=== PATIENT | female | born 1960 | race American Indian/Alaskan Native ===

== ENCOUNTER 2017-06-19 20:15 | Emergency (ER) | payer MEDICARE, OTHER ==
[~2017-06-19] VITALS: Ht 154.9 cm; Wt 73.0 kg
[~2017-06-19 20:15] MED LIST: ACETAMINOPHEN325 M1 PO; CHLORPHENIRAMINE4 MG PO; COZAAR25 MG PO; CRESTOR20 MG PO; NORCO 5-325 TA1 EACH PO; PREDNISONE5 MG PO; PROMETHAZINE HC25 M1 PO; ROBITUSSIN100 MG/5 M PO; SIMVASTATIN10 MG PO; TAMIFLU75 MG PO; VITAMIN D35000 UNIT PO
== END 2017-06-19 21:41 | disposition home or self-care (01) ==
LOC: ED 20:15
DX: S90.31XA Contusion of right foot, initial encounter (principal); M06.9 Rheumatoid arthritis, unspecified; I10 Essential (primary) hypertension; Z98.51 Tubal ligation status; Z98.890 Other specified postprocedural states; Z88.6 Allergy status to analgesic agent; Z79.899 Other long term (current) drug therapy; W22.8XXA Striking against or struck by other objects, initial encounter
CPT/HCPCS: 73610; 73630; 99283

== ENCOUNTER 2018-11-02 20:10 | Emergency (ER) | payer MEDICARE, OTHER ==
[~2018-11-02] VITALS: Ht 160 cm; Wt 78.0 kg
[~2018-11-02 20:10] MED LIST changes: +ALENDRONATE SOD35 MG PO; +ATORVASTATIN CA10 MG PO; +AUGMENTIN 875-1 EACH PO; +NAPROXEN500 MG PO
[2018-11-03] MEDS ORDERED: TRAMADOL HCL50 MG PO (00:27)
== END 2018-11-03 00:38 | disposition home or self-care (01) ==
LOC: ED 20:10
DX: J40 Bronchitis, not specified as acute or chronic (principal); M06.9 Rheumatoid arthritis, unspecified; I10 Essential (primary) hypertension; Z88.6 Allergy status to analgesic agent; Z79.899 Other long term (current) drug therapy
CPT/HCPCS: 71045; 80053; 84484; 85025; 96361; 96374; 99284-25; J1885; J7030

== ENCOUNTER 2019-02-25 21:15 | Emergency (ER) | payer MEDICARE, OTHER ==
[~2019-02-25] VITALS: Ht 160 cm; Wt 78.9 kg
[~2019-02-25 21:15] MED LIST changes: +TRAMADOL HCL50 MG PO
[2019-02-25] MEDS ORDERED: COUGH SYRU100 MG/5 M PO (21:27)
[2019-02-26] MEDS ORDERED: GUAIFENESIN AC473 ML PO (00:11)
== END 2019-02-26 00:33 | disposition home or self-care (01) ==
LOC: ED 21:15
DX: J98.8 Other specified respiratory disorders (principal); B97.89 Other viral agents as the cause of diseases classified elsewhere; I10 Essential (primary) hypertension; Z88.6 Allergy status to analgesic agent; Z79.899 Other long term (current) drug therapy
CPT/HCPCS: 99283

== ENCOUNTER 2020-11-21 07:50 | Day surgery (SDC) | payer MEDICARE, OTHER ==
--- NOTE | 2020-11-15 13:21 | NUR ---
CALL INTO DR LEO REGARDING PT RECEIVING HER 2ND COVID INJECTION. LEFT MESSAGE DUE TO DR IS NOT IN AT THIS TIME. PT IS GOING TO CALL PRODUCTION SOLDERER WITH THE SPECIFIC DATE OF INJECTION. PT THINKS IT IS Nov.
[~2020-11-21] VITALS: Ht 160 cm; Wt 73.6 kg
[~2020-11-21 07:50] MED LIST changes: +CLARITIN10 MG PO; +COUGH SYRU100 MG/5 M PO; +DOXYCYCLINE MO100 MG PO; +GUAIFENESIN AC473 ML PO
--- NOTE | 2020-11-21 11:56 | NUR ---
11/21/20 1156 Juani Richter 1029 PT ARRIVED IN PACU AWAKE WITH NO C/O'S. BLOOD SUGAR 105. 1040 PORTABLE 3 VIEW XRAY OF R FOOT DONE. 1045 UP TO BSC. VOIDED 300ML. BACK IN BED. 1100 C/O PAIN ON THE OUTSIDE OF R ANKLE. TC TO . 1115 SPOKE WITH AND PAIN R/T TOURNEQUET. EXPLAINED THIS TO PT, WITH VERBAL UNDERSTANDING. 1135 DC INSTRUCTIONS GIVEN. LEFT VIA W/C.
--- NOTE | 2020-11-22 13:52 | OR ---
[facility] [address] [facility] [place] [address] Signed DATE OF OPERATION: 11/21/2020 SURGEON: Ruddy Eubanks DPM PREOPERATIVE DIAGNOSES: 1. Deformity of right first digit. 2. Flexion deformity of right foot muscle and tendon to first digit. POSTOPERATIVE DIAGNOSES: 1. Deformity of right first digit. 2. Flexion deformity of right foot muscle and tendon to first digit. PROCEDURES: 1. Right first MTPJ fusion with locking plate. 2. Flexor tenotomy of the right first digit. LABOR ARBITRATOR HEARING OFFICE: Saw Joaquin DPM NURSE BOILERMAKER PIPE FITTER: Saw Noguera. ANESTHESIA: Local with MAC consisting of 16 mL of 0.5% ropivacaine mixed with 2% lidocaine plain. HEMOSTASIS: Ankle tourniquet. ESTIMATED BLOOD LOSS: Less than 5 mL or minimal. MATERIALS USED: One ORTHOLOC MTPJ locking plate with 2.7 screws, 4-0 Vicryl, 5-0 nylon. PROCEDURE IN DETAIL: The patient was brought into the operating room and placed upon the operating table in the supine position. The right foot was prepped, local anesthesia was administered around the first right MTPJ and medial midfoot. The right foot was the scrubbed, prepped and draped in the usual sterile technique. An Esmarch bandage was then utilized to exsanguinate the patient's right foot and then left wrapped around the ankle to act as Electronically Signed By: RUDDY EUBANKS DPM 11/22/20 1352 PATIENT NAME: CLAYTON MORALES OPERATIVE REPORT DATE OF : 58 REPORT #: [id number] PHYSICIAN: RUDDY EUBANKS DPM PCP: ASA DEL CASTILLO REPORT IS CONFIDENTIAL AND NOT TO BE RELEASED WITHOUT AUTHORIZATION [facility] [address] [place], [place] [address] Signed tourniquet. Attention was then directed to the dorsal aspect of the patient's right first MTPJ where approximately a 6 cm linear incision was performed both parallel and medial to the area of the extensor hallucis longus. This followed scarring from a previous surgery over the first metatarsal head that was extended onto the first digit proximal phalanx. Incision was then deepened through the subcutaneous tissue with care being taken to identify and retract vital neurovascular structures. Bleeders were cauterized and ligated as necessary. Careful dissection continued down to the level of the first MTPJ. It should be noted in this region a couple of things: 1. Scar tissue formation along the medial aspect of the first metatarsal head was abundant likely from previous surgery. 2. Extensor tendon did not extend down onto the first digit. It seem to be adhered around the metatarsal head region. 3. Arthritic changes at the MTPJ was observed. Sagittal saw was then utilized to resect arthritic gross changes around the MTPJ. 4. K-wire was inserted into the first metatarsal head and driven upwards into the shaft to act as a guidewire. Using a cup and dome reamers the head of the reamers set the head of the first metatarsal was shape. The articulate cartilage was denuded to raw bone. The K-wire was then removed. Again utilizing a reamer set K-wire was driven through the base of the proximal phalanx up distal aspect of the digit to act as a guidewire. Reamer set was then utilized to shape the base of the proximal phalanx removing and denuding articular cartilage and dividing down to raw bone. The area was then flushed with copious amounts of sterile normal saline. Rongeur was utilized to remove the additional hypertrophic bone and then also bone rasp was utilized to smooth the area. First digit was placed into a more corrected rectus position. There was very little dorsiflexion noted here. There was a significant flexion contracture that was still present. Prior to the application of the plate, the toe was distracted. The flexor tendon going into the digit was identified. Tenotomy scissors were then utilized to perform a tenotomy of the flexor hallucis tendon and this released the flexion contracture. Next, the proximal phalanx was moved into good rectus position on the metatarsal head with very slight dorsiflexion. K-wire was driven across the MTPJ to act as temporary fixation. Next, a ORTHOLOC locking plate was then applied following standard AO fixation techniques. K-wires were removed for completion of the screws of the locking plate. Good positioning of the MTPJ was observed. Good approximation across the joint was also observed. The area was then flushed with copious amounts of sterile normal saline. The deep soft tissue and the joint capsule was then closed utilizing 4-0 Vicryl. Subcutaneous tissue was closed utilizing 4-0 Vicryl and the skin was reapproximated and coapted utilizing 5-0 nylon in the continuous interlocking suture technique. Postoperative injection consisting of approximately 5 mL of 0.5% ropivacaine and 1 mL of dexamethasone phosphate was injected about the surgical site. The area was then dressed with silver foam dressing, fluff guaze, rolled guaze and Coban. The ankle tourniquet was removed and prompt hyperemic response was noted to all digits of the patient's right foot. The patient was then escorted to the recovery area with vital Electronically Signed By: RUDDY EUBANKS DPM 11/22/20 1352 PATIENT NAME: CLAYTON MORALES OPERATIVE REPORT DATE OF : 58 REPORT #: [id number] PHYSICIAN: RUDDY EUBANKS DPM PCP: [facility] REPORT IS CONFIDENTIAL AND NOT TO BE RELEASED WITHOUT AUTHORIZATION [facility] [address] [place] [id number] Signed signs stable, capillary refill time being less than 3 seconds. Following a period of time postoperative monitoring, the patient was discharged to home with both written and oral instructions. Ruddy Eubanks DPM /ELMERL /[id number] Copies: ~ Electronically Signed By: RUDDY EUBANKS DPM 11/22/20 1352 PATIENT NAME: CLAYTON MORALES OPERATIVE REPORT DATE OF : 58 REPORT #: [id number] PHYSICIAN: RUDDY EUBANKS DPM PCP: [facility] REPORT IS CONFIDENTIAL AND NOT TO BE RELEASED WITHOUT AUTHORIZATION
== END 2020-11-21 11:35 | disposition home or self-care (01) ==
LOC: DS 07:50 → OPS 07:50 → DS 08:30 → OPS 08:30
PROVIDERS: ATTEND Podiatrist Foot & Ankle Surgery
PROC: 0SGM04Z Fusion of Right Metatarsal-Phalangeal Joint with Internal Fixation Device, Open Approach (ICD-10-PCS; 2020-11-21)
PROC: 0LNV0ZZ Release Right Foot Tendon, Open Approach (ICD-10-PCS; principal; 2020-11-21 08:30)
DX: M21.271 Flexion deformity, right ankle and toes (principal)
CPT/HCPCS: 73620; 73630; J0690; J1100; J2001; J2405; J2704; J2795; J3010; J7121

== ENCOUNTER 2021-04-10 10:59 | Emergency (ER) | payer MEDICARE, OTHER ==
[~2021-04-10] VITALS: Ht 160 cm; Wt 73.5 kg
[2021-05-30] MEDS ORDERED: TUSSIN400 MG PO (15:12)
[2021-06-04] MEDS ORDERED: HYDROCODON-ACE1 EA10 PO (12:43)
[2021-06-04] MEDS ORDERED: CLARITIN10 M2 PO (12:44)
== END 2021-04-10 11:32 | disposition home or self-care (01) ==
LOC: ED 10:59
DX: T63.461A Toxic effect of venom of wasps, accidental (unintentional), initial encounter (principal); I10 Essential (primary) hypertension; Z88.6 Allergy status to analgesic agent; Z79.899 Other long term (current) drug therapy
CPT/HCPCS: 99282; A9270

== ENCOUNTER 2021-06-05 07:10 | Day surgery (SDC) | payer MEDICARE, OTHER ==
[~2021-06-05] VITALS: Ht 160 cm; Wt 75.5 kg
--- NOTE | ~2021-06-05 | OR ---
[facility] [address] [place], [place] [address] Draft DATE OF OPERATION: 06/05/2021 SURGEON: Ruddy Eubanks DPM PREOPERATIVE DIAGNOSIS: Painful hardware, right calcaneus. POSTOPERATIVE DIAGNOSIS: Painful hardware, right calcaneus. PROCEDURE: Removal of deep orthopedic implant, right calcaneus. NEUROLOGY SPECIALIST: Saw Joaquin DPM. NURSE COMMUNITY DEVELOPMENT DIRECTOR: Saw Noguera. ANESTHESIA: Local with MAC consisting of 8 mL of 1:1 mix of 2% lidocaine plain and 0.5% of bupivacaine plain. ESTIMATED BLOOD LOSS: Less than 5 mL or minimal. TOURNIQUET: No ankle tourniquet for hemostasis was utilized. MATERIALS UTILIZED: 4-0 nylon. PROCEDURE IN DETAIL: The patient was brought into the operating room and placed upon the operating table on her left side with the right lower extremity being superior. The foot was scrubbed, prepped, and draped in the usual sterile technique. A K-wire was then inserted into the posterolateral aspect of the integument over the calcaneus, where the head of the screw could be palpated. Utilizing intraoperative fluoroscopy, the cannulated area of the screw was identified. A small stab incision was performed on the medial and lateral aspects of the K-wire creating a 1 cm incision. Screwdriver was then inserted and set PATIENT NAME: CLAYTON MORALES OPERATIVE REPORT DATE OF : 58 REPORT #: [id number] PHYSICIAN: RUDDY EUBANKS DPM PCP: [facility] REPORT IS CONFIDENTIAL AND NOT TO BE RELEASED WITHOUT AUTHORIZATION [facility] [address] [place], [place] [address] Draft within the cannula and the screw head. The screw was then backed out and removed from the posterior aspect of the calcaneus. The surgical site was then closed with 3-0 nylon. Two simple interrupted sutures were applied. No significant difficulty was observed with removal of the hardware. Different screwdrivers have to be attempted in order to find the proper fit with the head of the screw. Once this was obtained, the screw was backed out with resistance. Then, the screw was well seated. It had good visual developer and was retrograded out with ease. Little soft tissue dissection or damage occurred with removal of the hardware. The surgical site was then dressed with Steri-Strips, down with the Betadine gauze followed by 4 x 4 fluff, roll gauze, and Coban. Slight bandage buildup was applied to the patient's arch area to help offload the calcaneal region. The patient had tolerated the procedure and the anesthesia well. She was then escorted to the recovery area with capillary refill time being less 3 seconds to all digits of her right foot. Following a period of postoperative monitoring, the patient was discharged to home with both written and oral instructions. Ruddy Eubanks DPM TM/MODL /[id number] Copies: ~ PATIENT NAME: VANE MORALESTINA JOSE OPERATIVE REPORT DATE OF : 58 REPORT #: [id number] PHYSICIAN: RUDDY EUBANKS DPM PCP: [facility]LE[facility] BUSTOS REPORT IS CONFIDENTIAL AND NOT TO BE RELEASED WITHOUT AUTHORIZATION
[~2021-06-05 07:10] MED LIST changes: +CLARITIN10 M2 PO; +HYDROCODON-ACE1 EA10 PO; +TUSSIN400 MG PO
--- NOTE | 2021-06-05 12:13 | NUR ---
[facility] ARRIVED IN PACU SLEEPY WITH NO C/O'S. 1020 DR AT BEDSIDE TALKING WITH PT. ALL QUESTIONS ANSWERED. 1030 3VIEW XRAY OF R FOOT DONE. 1045 C/O R ANKLE/FOOT PAIN 07/28. ANESTHESIA AWARE. [id number] BLOCK DONE. PT TOLERTED WELL. 1101 REPOSITIONED TO BACK AND PT C/O CHEST PAIN. HEART RATE 40. ROBINUL GIVEN BY ANESTHESIA FOR LOW HEART RATE. EKG ORDERED. 1105 EKG DONE. 1110 C/O SOB. ANESTHESIA AT BEDSIDE. NEW ORDERS RECEIVED. 1120 ALBUTEROL 2 PUFFS BY INHALER GIVEN TO PT. BLOOD SUGAR 98. 1130 PT STATES CHEST PAIN MOVES FROM CENTER OF CHEST TO UNDER RIGHT BREAST. WILL OCCASIONALLY YELL OUT IN PAIN. ANESTHESIA TALKING WITH PT ABOUT HISTORY OF CHEST PAIN. PT STATES "THIS HAPPENS SOMETIMES. NOTHING NEW FOR ME." 1140 UP TO BATHROOM. VOIDED. ANESTHESIA OK FOR PT TO DC HOME AND RETURN IF ANY CHEST PAIN OR SOB. 1145 DC INSTRUCTIONS GIVEN. RN HELPED PT GET DRESSED. 1150 LEFT VIA W/C. DC INSTRUCTIONS GIVEN TO PT'S SISTER AT CAR. ALL QUESTIONS ANSWERED. INHALER/SPACER SENT HOME WITH PT. NO C/O SOB OR CHEST PAIN ON ARRIVAL TO CAR.
--- NOTE | 2021-06-05 16:57 | EKG ---
[facility] [address] [facility] [place] [address] Signed Junctional rhythm Nonspecific T wave abnormality Abnormal ECG When compared with ECG of 15-NOV-2020 14:16, Junctional rhythm has replaced Sinus rhythm Nonspecific T wave abnormality, improved in Inferior leads Confirmed by TJ DAIGLE MD ([id number]) on 06/05/2021 4:57:24 PM Electronically Signed By: TJ DAIGLE MD 06/05/21 1657 PATIENT NAME: VANE MORALESTINA JOSE Electrocardiogram DATE OF : 58 PHYSICIAN: TJ DAIGLE MD REPORT #: [id number] REPORT IS CONFIDENTIAL AND NOT TO BE RELEASED WITHOUT AUTHORIZATION
== END 2021-06-05 11:50 | disposition home or self-care (01) ==
LOC: OPS 07:10 → DS 07:10 → OPS 08:30 → DS 09:15 → OPS 11:50
PROVIDERS: ATTEND Podiatrist Foot & Ankle Surgery
PROC: 0QPL04Z Removal of Internal Fixation Device from Right Tarsal, Open Approach (ICD-10-PCS; principal; 2021-06-05 08:30)
DX: T84.84XA Pain due to internal orthopedic prosthetic devices, implants and grafts, initial encounter (principal); G89.18 Other acute postprocedural pain; L84 Corns and callosities; M20.41 Other hammer toe(s) (acquired), right foot; R00.1 Bradycardia, unspecified; R07.89 Other chest pain; T41.3X5A Adverse effect of local anesthetics, initial encounter; F41.0 Panic disorder [episodic paroxysmal anxiety]; J45.909 Unspecified asthma, uncomplicated; E11.9 Type 2 diabetes mellitus without complications; M19.90 Unspecified osteoarthritis, unspecified site; E78.00 Pure hypercholesterolemia, unspecified; Y79.2 Prosthetic and other implants, materials and accessory orthopedic devices associated with adverse incidents; Z88.8 Allergy status to other drugs, medicaments and biological substances
CPT/HCPCS: 01480; 73620; 73630; 93005; 93010; J0690; J1100; J2001; J2405; J2704; J2795; J3010; J7121